=== PATIENT | female | born 1990 | race Caucasian/White ===

== ENCOUNTER 2021-07-27 11:08 | Emergency (ER) | payer OTHER ==
[~2021-07-27] VITALS: Ht 167.6 cm; Wt 68.0 kg
[2021-07-27 11:08] VITALS: BP 151/98
[2021-07-27] MEDS ORDERED: ONDANSETRON ODT 4 MG TAB PO ONE (11:30)
[2021-07-27] MEDS ORDERED: ALUM & MAG HYDROX-SIMETH LIQ(MAALOX) 30 ML PO ONE (11:30)
[2021-07-27] MEDS ORDERED: FAMOTIDINE 20 MG TAB PO ONE ×2 (11:30→15:30)
[2021-07-27 12:15] LABS: Basophils # (auto) 0 10 ^3/uL (0-0.2); Basophils % (auto) 0.2 % (0.0-2.0); Eosinophils # (auto) 0 10 ^3/uL (0-0.8); Hematocrit 41.3 % (36.0-46.0); Hemoglobin 14.1 g/dL (12.2-16.2); Lymphocytes # (auto) 0.9 10 ^3/uL (0.4-5.4); Lymphocytes % (auto) 7.9 % (10.0-50.0); Mean Corpuscular Hemoglobin 30.9 pg (28.0-32.0); Mean Corpuscular Hgb Conc. 34.1 g/dL (32.0-36.0); Mean Corpuscular Volume 90.6 fL (80.0-100.0); Monocytes # (auto) 0.8 10 ^3/uL (0-1.3); Neutrophils % (auto) 84.9 % (37.0-80.0); Red Blood Cells 4.56 10^6/uL (4.0-5.20); White Blood Cell 11.7 10^3/uL (4.4-10.8)
[2021-07-27] MEDS ORDERED: SODIUM CHLORIDE 0.9% 1,000 ML IV ONE (12:15)
[2021-07-27] MEDS ORDERED: ONDANSETRON HCL 4 MG/2 ML VIAL IV ONE (12:15)
[2021-07-27] MEDS ORDERED: FAMOTIDINE (10MG/ML) 2ML VL IV ONE (12:15)
[2021-07-27] MEDS ORDERED: LIDOCAINE VISCOUS 2% 15ML UD PO ONE (12:15)
[2021-07-27 12:30] LABS: Albumin 4.9 g/dL (3.4-5.0); BUN/Creatinine Ratio 17.2; Calcium 10.1 mg/dL (8.5-10.1); Potassium 3.3 mmol/L (3.5-5.1)
[2021-07-27 12:33] LABS: Bilirubin, Total 0.6 mg/dL (0.2-1.0); Total Protein 8.5 g/dL (6.4-8.2)
[2021-07-27] MEDS ORDERED: POTASSIUM EFFERVESENT TAB 25 MEQ PO ONE (13:00)
[2021-07-27] MEDS ORDERED: POTASSIUM CHL 10MEQ/50ML 50 ML IV ONE (13:00)
[2021-07-27] MEDS ORDERED: CALCIUM CARB 500 MG CHEW TAB PO ONE (15:30)
[2021-07-27] MEDS ORDERED: ONDA-144 PO (16:45)
== END 2021-07-27 17:39 | disposition home or self-care (01) ==
LOC: ER 11:08
DX: K52.9 Noninfective gastroenteritis and colitis, unspecified (principal); K29.70 Gastritis, unspecified, without bleeding; F17.210 Nicotine dependence, cigarettes, uncomplicated
CPT/HCPCS: 36415; 80053; 84702; 85025; 93005; 96361; 96374; 96375; 99284; J2405; J3480; J3490; J7030